=== PATIENT | male | born 1985 | race Caucasian/White ===

== ENCOUNTER 2018-11-08 12:49 | Emergency (ER) | payer SELFPAY ==
[~2018-11-08] VITALS: Ht 175.3 cm; Wt 79.5 kg
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
[2018-11-08] MEDS ORDERED: GABA300C10 PO (13:19)
[2018-11-08] MEDS ORDERED: DIAZ5TAB PO ×2 (13:19→13:32)
--- NOTE | 2018-11-08 13:31 | NUR ---
TWO BAGS OF BELONGINS PLACED IN LOCKED CABINET.
--- NOTE | 2018-11-08 14:09 | NUR ---
PT LAYING ON GURNEY. PO FLUIDS AT BEDSIDE. PT AWARE MEAL TRAY REQUESTED FROM DIETARY. PT COOPERATIVE WITH CARE AT THIS TIME. NO NEEDS EXPRESSED AT THIS TIME. SITTER REMAINS AAT DOOR.
[2018-11-08 14:17] LABS: BASOPHILS # (AUTO) 0.03 x10^3/uL (0-0.1); BASOPHILS % (AUTO) 0 % (0-1); EOSINOPHILS # (AUTO) 0.04 x10^3/uL (0-0.4); EOSINOPHILS % (AUTO) 1 % (1-7); LYMPHOCYTES # (AUTO) 1.76 x10^3/uL (1-3.4); LYMPHOCYTES % (AUTO) 22 % (22-44); MD NO; MEAN CORPUSCULAR HEMOGLOBIN 29.5 pg (27.5-34.5); MEAN CORPUSCULAR HGB CONC 33.1 g/dL (33.2-36.2); MEAN CORPUSCULAR VOLUME 89.1 fL (81-97); MEAN PLATELET VOLUME 6.9 fL (7.4-10.4); MONOCYTES # (AUTO) 0.37 x10^3/uL (0.2-0.8); MONOCYTES % (AUTO) 5 % (2-9); NEUTROPHILS # (AUTO) 5.78 x10^3/uL (1.8-6.8); NEUTROPHILS % (AUTO) 72 % (42-75); PLATELET COUNT 227 x10^3/uL (130-400); RED BLOOD COUNT 4.76 x10^6/uL (4.38-5.82); RED CELL DISTRIBUTION WIDTH 13.2 % (9.4-14.8)
--- NOTE | 2018-11-08 14:26 | NUR ---
REPORT TO BOY DESAI
[2018-11-08 14:30] LABS: ALBUMIN 3.6 g/dL (3.4-5.0); ANION GAP 6 mmol/L (5-15); CALCIUM 8.6 mg/dL (8.5-10.1); CHLORIDE 107 mmol/L (98-107)
--- NOTE | 2018-11-08 14:32 | NUR ---
PT VERBALIZES, "EVERYTHING THAT GOES THROUGH MY MIND IS TO JUST FUCKING HURT PEOPLE, I FEEL LIKE ANY LITTLE THING COULD SET ME OFF'
[2018-11-08 14:40] LABS: CREATININE 0.81 mg/dL (0.7-1.3); SALICYLATE LEVEL 3.5 mg/dL (2.8-20.0)
[2018-11-08 14:41] LABS: ACETAMINOPHEN < 2 mcg/mL (10-30)
--- NOTE | 2018-11-08 14:58 | NUR ---
REPORT RECEIVED FROM GISELLE BRUNSON. PT RESTING ON GURNEY, RESPS EVEN AND UNLABORED. ROOM SECURE. PT REMAINS COOPERATIVE AND CALM AT THIS TIME. VERBAL ORDER RECEIVED FROM NARENDRA MOSER TO OBTAIN DRUG SCREEN URINE. URINE SENT TO LAB, LAB CALLED TO NOTIFY.
--- NOTE | 2018-11-08 15:19 | NUR ---
PT PROVIDED WITH WARM BLANKET. PT REQUESTING SEDATION D/T INCREASED AGITATION AND ANXITEY. NARENDRA MOSER NOTIFIED, AWAITING ORDERS.
[2018-11-08 15:22] LABS: AMPHETAMINE SCREEN, URINE Negative (Negative); BARBITURATE SCREEN, URINE Negative (Negative); BENZODIAZEPINE SCREEN, URINE Positive (Negative); CANNABINOID SCREEN, URINE Positive (Negative); COCAINE SCREEN, URINE Negative (Negative); METHADONE SCREEN, URINE Negative (Negative); OPIATE SCREEN, URINE Negative (Negative)
[2018-11-08] MEDS ORDERED: HALOPERIDOL 5 MG/ML ONE (15:36)
--- NOTE | 2018-11-08 15:42 | NUR ---
TASK RN: Pt medicated per MAR.
[2018-11-08] MEDS ORDERED: HALOPERIDOL 5 MG/ML IM PRN (16:00)
--- NOTE | 2018-11-08 16:03 | NUR ---
SOC CONSULT INITIATED.
--- NOTE | 2018-11-08 16:15 | NUR ---
PT SLEEPING ON GURNEY, RESPS EVEN AND UNLABORED. SITTER MONITORING FROM HALLWAY FOR SAFETY. ROOM REMAINS SECURE.
--- NOTE | 2018-11-08 17:19 | NUR ---
PT AWAKE, PT GIVEN SI MEAL TRAY. SITTER MONITORING FROM HALLWAY, ROOM REMAINS SECURE. AWAITING TELEPSYC CONSULT AND DISPO.
[2018-11-08] MEDS ORDERED: LORazepam 1MG TABLET PO PRN (17:30)
[2018-11-08] MEDS ORDERED: DIPHENHYDRAMINE 25 MG CAPSULE PO PRN (17:30)
[2018-11-08] MEDS ORDERED: LIDODERM 5% PATCH TD PRN (17:30)
[2018-11-08] MEDS ORDERED: NICOTINE 14MG/24 HR PATCH.TD24 TD SCH (17:30)
[2018-11-08] MEDS ORDERED: ACETAMINOPHEN 325 MG TABLET PO PRN (17:30)
[2018-11-08] MEDS ORDERED: IBUPROFEN 600 MG TABLET PO PRN (17:30)
--- NOTE | 2018-11-08 17:31 | NUR ---
meal tray consumed 100%. pt given fresh warm blankets. pt is a&o, pt is calm but uncooperative and rude with staff, stating that this is "[facility]" - in regards to SI precautions. sitter monitoring from [facility] for safety, room remains secure.
[2018-11-08 17:36] VITALS: BP 125/75
--- NOTE | 2018-11-08 17:45 | NUR ---
report given to receiving 2N RN Lakisha. awaiting transport to 263. Addendum: 11/08/18 at 1746 by GAY report given to receiving 2N RN Lakisha. awaiting transport to 262.
--- NOTE | 2018-11-08 17:49 | NUR ---
report given to telepsyc SOC. robot in room, awaiting psyc consult.
--- NOTE | 2018-11-08 18:03 | NUR ---
telepsyc SOC consult complete. this RN spoke with MD Flynn who recommends dc. has no medication recommendations for discharge. pt denies SI/HI. NARENDRA Bautista notified.
--- NOTE | 2018-11-08 18:52 | NUR ---
PT GIVEN ALL BELONGINGS INCLUDING PHONE AND CLOTHES. PT GIVEN DC INSTRUCTIONS. PT A&O, RESPS EVEN AND UNLABORED. NO SI/HI AT TIME OF DC. PT AMB TO DC DESK WITH STEADY GAIT. PT SPOKE WITH BROTHER ON PHONE WHO IS TO PICK HIM UP AND TAKE HIM HOME. ALL QUESTIONS ANSWERED. GRETEL AT HI. Addendum: 11/08/18 at 1854 by GAY DC ORDERS AND PAPERWORK RECEIVED FROM NARENDRA MOSER. PT GIVEN ALL BELONGINGS INCLUDING PHONE AND CLOTHES. PT GIVEN DC INSTRUCTIONS. PT A&O, RESPS EVEN AND UNLABORED. NO SI/HI AT TIME OF DC. PT AMB TO DC DESK WITH STEADY GAIT. PT SPOKE WITH BROTHER ON PHONE WHO IS TO PICK HIM UP AND TAKE HIM HOME. ALL QUESTIONS ANSWERED. GRETEL AT HI.
[2018-11-08] MEDS ORDERED: GABAPENTIN 100 MG CAPSULE PO SCH (21:00)
[2018-11-08] MEDS ORDERED: DIAZEPAM 5 MG TABLET PO SCH (21:00)
== END 2018-11-08 18:51 | disposition home or self-care (01) ==
LOC: ED 14:24 → EDIP 16:27 → UNDOADMOB 16:27
DX: R45.851 Suicidal ideations (principal); R45.850 Homicidal ideations; R45.1 Restlessness and agitation; R45.4 Irritability and anger
CPT/HCPCS: 36415; 80048; 80307; 80329; 82040; 85025; 96372; 99284; J1630; G0480